=== PATIENT | female | born 1985 | race Caucasian/White ===

== ENCOUNTER 2017-02-03 10:35 | Inpatient (IN) | payer BC, OTHER ==
[~2017-02-03] VITALS: Ht 157.5 cm; Wt 77.6 kg
[2017-02-03] MEDS ORDERED: SODIUM CHLORIDE 0.9% 1,000 ML IV ONE ×3 (11:05→14:55)
[2017-02-03] MEDS ORDERED: HYDROmorphone 1 MG/ML, 1ML ONE ×3 (11:19→14:51)
[2017-02-03] MEDS ORDERED: ONDANSETRON 2MG/ML, 2ML ONE ×3 (11:19→18:04)
[2017-02-03] MEDS ORDERED: ONDANSETRON 2MG/ML, 2ML IVPush ONE ×2 (11:30→14:00)
[2017-02-03] MEDS ORDERED: SODIUM CHLORIDE FLUSH 10ML SYR IVF ONE (11:30)
[2017-02-03] MEDS: HYDROmorphone 1 MG/ML, 1ML IVPush PRN ×2 (11:34→12:55)
[2017-02-03 11:46] LABS: ASPARTATE AMINO TRANSFERASE 15 U/L (15-37); BLOOD UREA NITROGEN 8 mg/dL (7-18)
[2017-02-03] MEDS ORDERED: SODIUM CHLORIDE 0.9% 1,000ML IVBOLUS ONE (14:00)
[2017-02-03] MEDS ORDERED: METOCLOPRAMIDE 5 MG/ML, 2ML ONE (14:51)
[2017-02-03] MEDS ORDERED: SODIUM CHLORIDE FLUSH 10ML SYR IVF PRN (15:00)
[2017-02-03] MEDS ORDERED: METOCLOPRAMIDE 5 MG/ML, 2ML IVPush ONE (15:00)
[2017-02-03] MEDS ORDERED: ONDANSETRON 2MG/ML, 2ML IVPush PRN ×3 (15:00→21:30)
[2017-02-03] MEDS ORDERED: HYDROmorphone 1 MG/ML, 1ML IVPush PRN ×2 (15:00)
[2017-02-03] MEDS ORDERED: BACITRACIN 50,000 UNIT ONE (17:34)
[2017-02-03] MEDS ORDERED: BUPIVACAINE/PF-EPI 0.5% 1:200K ONE (17:34)
[2017-02-03] MEDS ORDERED: GLYCOPYRROLATE 0.2MG/1ML ONE (18:04)
[2017-02-03] MEDS ORDERED: PROPOFOL 10 MG/ML, 20ML ONE (18:04)
[2017-02-03] MEDS ORDERED: DEXAMETHASONE 4 MG/ML, 5ML ONE (18:04)
[2017-02-03] MEDS ORDERED: CEFOTETAN 2 GM ONE (18:04)
[2017-02-03] MEDS ORDERED: ROCURONIUM 10 MG/ML ONE (18:04)
[2017-02-03] MEDS ORDERED: KETOROLAC 30 MG/1 ML ONE (18:04)
[2017-02-03] MEDS ORDERED: NEOSTIGMINE 1 MG/ML, 10ML ONE (18:04)
[2017-02-03] MEDS ORDERED: MIDAZOLAM 1 MG/ML, 2ML ONE (18:05)
[2017-02-03] MEDS ORDERED: FENTANYL PF 100 MCG/2ML ONE (18:05)
[2017-02-03] MEDS ORDERED: BUPIVACAINE/PF-EPI 0.5% 1:200K INFIL ONE (18:15)
[2017-02-03] MEDS ORDERED: OXYcodone 5 MG/5 ML ORAL.SOL UDC PO PRN (18:30)
[2017-02-03] MEDS ORDERED: ACETAMINOPHEN 325 MG TABLET PO PRN (18:30)
[2017-02-03] MEDS ORDERED: FENTANYL PF 100 MCG/2ML IV PRN (18:30)
[2017-02-03] MEDS ORDERED: MEPERIDINE/PF 25MG/0.5ML IVPush PRN (18:30)
[2017-02-03] MEDS ORDERED: LABETALOL 5MG/ML, 20ML IV PRN (18:30)
[2017-02-03] MEDS ORDERED: HYDROmorphone 1 MG/ML, 1ML IV PRN (18:30)
[2017-02-03] MEDS ORDERED: hydrALAzine 20 MG/ML, 1ML IV PRN (18:30)
[2017-02-03] MEDS ORDERED: METOPROLOL 1 MG/ML, 5ML IV PRN (18:30)
[2017-02-03] MEDS ORDERED: ALBUTEROL SULFATE 2.5 MG/3 ML NPPB PRN (18:30)
[2017-02-03] MEDS ORDERED: EPHEDRINE 50 MG/ML, 1ML IVPush PRN (18:30)
[2017-02-03] MEDS ORDERED: ACETAMINOPHEN 650 MG/20.3 ML UDC ONE (19:26)
[2017-02-03] MEDS ORDERED: ACETAMINOPHEN 325 MG TABLET ONE (19:26)
[2017-02-03] MEDS ORDERED: HYDR-3240 PO (20:48)
[2017-02-03] MEDS ORDERED: ONDA4TAB7 PO (20:52)
[2017-02-03 21:00] VITALS: BP 122/72
[2017-02-03] MEDS ORDERED: MORPHINE SULFATE 4 MG/ML, 1ML IVPush PRN (21:30)
[2017-02-03] MEDS ORDERED: HYDROcodone/APAP 5/325 TABLET PO PRN (21:30)
== END 2017-02-04 00:20 | disposition home or self-care (01) | DRG 354 ==
LOC: ED 14:16 → EDIP 14:55 → 3NE 16:15
PROVIDERS: ADMIT Surgery Vascular Surgery; ATTEND Surgery Vascular Surgery
PROC: 0WUF0JZ Supplement Abdominal Wall with Synthetic Substitute, Open Approach (ICD-10-PCS; principal; 2017-02-03 20:00)
DX: K42.0 Umbilical hernia with obstruction, without gangrene (principal); Q60.0 Renal agenesis, unilateral; Z98.51 Tubal ligation status; Z88.6 Allergy status to analgesic agent
CPT/HCPCS: 36415; 76700; 76705; 80053; 83605; 84703; 85025; 96374; 96375; 96376; J1100; J1170; J1885; J2250; J2405; J2704; J2710; J3010; J3490; J2765; J7030; S0074